=== PATIENT | female | born 1935 | race Caucasian/White ===

== ENCOUNTER 2017-03-24 06:48 | Day surgery (SDC) | payer MEDICARE, OTHER ==
[2017-03-24] MEDS ORDERED: Lactated Ringers 1,000 ML IV SCH (07:30)
[2017-03-24] MEDS ORDERED: fentaNYL 100 MCG/2 ML SDV ONE (08:27)
[2017-03-24] MEDS ORDERED: Propofol 200 MG/20 ML SDV ONE (08:27)
[2017-03-24 10:03] VITALS: BP 120/70
--- NOTE | 2017-03-24 14:56 | OR ---
DATE OF PROCEDURE: 03/24/2017 PREOPERATIVE DIAGNOSIS: Dysphagia. POSTOPERATIVE DIAGNOSIS: Dysphagia, etiology unknown. Unremarkable upper endoscopy. SURGEON: Jair Quinn MD. PROCEDURE: Esophagogastroduodenoscopy. ANESTHESIA: IV anesthesia with monitored anesthesia care. INDICATIONS: This 81-year-old white female is referred for upper endoscopy because of dysphagia. She has a history of gastroesophageal reflux disease, which was treated quite successfully with omeprazole. She says her swallowing problem where food gets stuck is only occasional. I counseled her for upper endoscopy with possible biopsy and/or dilatation including risks and alternatives, and she gave her informed consent to proceed. DESCRIPTION OF PROCEDURE: The patient was placed in the left lateral decubitus position. IV anesthesia was administered by the Anesthesia Service. Time-out was held. The flexible video Olympus upper endoscope was passed through her mouth, down her esophagus, and easily into the stomach. The scope was passed through the pylorus into the duodenal, reaching its third portion. The scope was then slowly withdrawn, examining the mucosa throughout. The duodenal mucosa appeared unremarkable. The scope was brought up through the pylorus into the antrum. This appeared unremarkable. The scope was retroflexed. The proximal stomach appeared unremarkable. The scope was straightened and brought up to the GE junction. The Z-line was straight. There was no evidence of any structural abnormalities that could cause dysphagia. The scope was then brought proximal through the remainder of the esophagus, which throughout its course appeared unremarkable, and it was removed. She tolerated the procedure well. Jair Quinn MD /[id number]
== END 2017-03-24 10:05 | disposition home or self-care (01) ==
LOC: JP.SDS 06:48
PROVIDERS: ATTEND Surgery
DX: R13.10 Dysphagia, unspecified (principal)
CPT/HCPCS: 43235; J2704; J3010; J7120

== ENCOUNTER 2018-12-31 02:47 | Emergency (ER) | payer MEDICARE, OTHER ==
[2018-12-31] MEDS: Sodium Chloride 0.9% 10 ML Syringe FLUSH PRN ×2 (03:27→06:15)
--- NOTE | 2018-12-31 04:04 | EDM.PDOC ---
ED HPI GENERAL MEDICAL PROBLEM - General Chief Complaint: Chest Pain Stated Complaint: CHEST PAIN Time Seen by Provider: 12/31/18 03:17 Source of Information: Reports: Patient History Limitations: Reports: Physical Impairment (This lady has some difficulty speaking so it's difficult to get a history out of her.) - History of Present Illness INITIAL COMMENTS - FREE TEXT/NARRATIVE: She awoke about 1 AM complaining of some chest pain. She pointed to the left pectoral region and the left side of the neck. It radiated down her left arm. The pain was about 8 out of 10 to begin with and is now about 5 out of 10. She noted that she's taking a medication for breast cancer that makes her leg hurt very bad. It's not clear that medication also gives her chest neck and arm pain. She did say she had some kind of screening a while back that showed some coronary artery plaques. Otherwise she denies any heart disease Treatments ORCHARD HAND: Reports: NSAIDS chest pain Pain Score (Numeric/FACES): 8 - Related Data Allergies Allergy/AdvReac Type Severity Reaction Status Date / Time adhesive tape Allergy Cannot Verified 12/31/18 03:03 Remember erythromycin base AdvReac Stomach Verified 12/31/18 03:03 Upset Home Meds: Home Meds Aspirin 325 mg PO DAILY 04/03/13 [History] Levothyroxine Sodium [Synthroid] 75 mcg PO BEDTIME 04/03/13 [History] Lisinopril 20 tab PO DAILY 04/03/13 [History] Metoprolol Succinate [Toprol XL 100mg] 100 mg PO DAILY 04/03/13 [History] hydroCHLOROthiazide [Hydrochlorothiazide] 12.5 mg PO DAILY 04/03/13 [History] Omeprazole 20 mg PO DAILY 03/22/17 [History] Anastrozole [Arimidex] 1 mg PO BEDTIME 12/31/18 [History] Ezetimibe 10 mg PO DAILY 12/31/18 [History] Pravastatin Sodium [Pravastatin (Pravachol)] 40 mg PO BEDTIME 12/31/18 [History] Past Medical History HEENT History: Reports: Hard of Hearing, Impaired Vision Cardiovascular History: Reports: High Cholesterol, Hypertension Gastrointestinal History: Reports: Colon Polyp, GERD 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: Musculoskeletal History: Reports: Osteoporosis Neurological History: Reports: TIA 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 Oncologic (Cancer) History: Reports: Breast, Other (See Below) Other Oncologic History: Lumpectomy of left breast Dermatologic History: Reports: None, Other (See Below) Other Dermatologic History: precancerous skin lesions removed - Infectious Disease History Infectious Disease History: Reports: Chicken Pox, Measles, Mumps - Past Surgical History HEENT Surgical History: Reports: Cataract Surgery Female Surgical History: Reports: Other (See Below) Other Female Surgeries/Procedures: lumpectomy of left breast Neurological Surgical History: Reports: Other (See Below) Other Neurological Surgeries/Procedures: compression fracture 30 years ago Musculoskeletal Surgical History: Reports: Other (See Below) Other Musculoskeletal Surgeries/Procedures:: RFA left leg Social & Family History - Tobacco Use Smoking Status *Q: Never Smoker - Caffeine Use Caffeine Use: Reports: Coffee - Recreational Drug Use Recreational Drug Use: No ED ROS GENERAL - Review of Systems Review Of Systems: See Below Constitutional: Reports: No Symptoms HEENT: Reports: No Symptoms Respiratory: Reports: No Symptoms Cardiovascular: Reports: Chest Pain Endocrine: Reports: No Symptoms GI/Abdominal: Reports: No Symptoms Musculoskeletal: Reports: Neck Pain, Arm Pain, Other Skin: Reports: No Symptoms Neurological: Reports: No Symptoms Psychiatric: Reports: No Symptoms ED EXAM, GENERAL - Physical Exam Exam: See Below Exam Limited By: No Limitations General Appearance: Alert, WD/WN, No Apparent Distress Eye Exam: Bilateral Eye: Normal Inspection Throat/Mouth: Normal Inspection Head: Atraumatic Neck: Supple, Non-Tender Respiratory/Chest: Lungs Clear, Other (A vague substernal and left pectoral area tenderness. Seems pretty mild. It's uncertain if this is the pain she was feeling or not) Cardiovascular: Normal Peripheral Pulses, Regular Rate, Rhythm, No Murmur Peripheral Pulses: 2+: Radial (L), Radial (R), Posterior Tibial (L), Posterior Tibial (R) GI/Abdominal: Normal Bowel Sounds, Soft, Non-Tender Back Exam: Normal Inspection Extremities: Normal Inspection, No Pedal Edema Neurological: Alert, Oriented Psychiatric: Normal Affect Skin Exam: Warm, Dry Course - Vital Signs Last Recorded V/S: Last Vital Signs Temp 36.6 C 12/31/18 06:23 Pulse 62 12/31/18 06:23 Resp 14 12/31/18 06:23 BP 147/68 H 12/31/18 06:23 Pulse Ox 98 12/31/18 06:23 - Orders/Labs/Meds Orders: Active Orders 24 hr Category Date Time Status EKG Documentation Completion [RC] ASDIRECTED Care 12/31/18 03:19 Active Sodium Chloride 0.9% [Saline Flush] Med 12/31/18 03:19 Active 10 ml FLUSH ASDIRECTED PRN Sodium Chloride 0.9% [Saline Flush] Med 12/31/18 04:12 Active 10 ml FLUSH ASDIRECTED PRN Saline Lock Insert [OM.PC] Urgent Oth 12/31/18 03:18 Ordered Saline Lock Insert [OM.PC] Urgent Oth 12/31/18 04:12 Ordered EKG 12 Lead [EK] Urgent Ther 12/31/18 03:18 Ordered Medication Orders Sodium Chloride (Saline Flush) 10 ml FLUSH ASDIRECTED PRN PRN Reason: Keep Vein Open Last Admin: 12/31/18 06:15 Dose: 10 ml Admin: 12/31/18 03:27 Dose: 10 ml Sodium Chloride (Saline Flush) 10 ml FLUSH ASDIRECTED PRN PRN Reason: Keep Vein Open Last Admin: 12/31/18 06:16 Dose: 10 ml Labs: Laboratory Tests 12/31/18 12/31/18 12/31/18 Range/Units 03:36 03:36 03:36 WBC 5.1 (4.5-11.0) K/uL RBC 3.52 (3.30-5.50) M/uL Hgb 11.2 L (12.0-15.0) g/dL Hct 34.4 L (36.0-48.0) % MCV 98 (80-98) fL MCH 32 H (27-31) pg MCHC 33 (32-36) % Plt Count 204 (150-400) K/uL Neut % (Auto) 65 (36-66) % Lymph % (Auto) 12 L (24-44) % Hutchinson % (Auto) 17 H (2-6) % Eos % (Auto) 5 H (2-4) % Baso % (Auto) 1 (0-1) % D-Dimer, Quantitative 460 H (0.0-400.0) ng/mL Sodium 137 L (140-148) mmol/L Potassium 3.7 (3.6-5.2) mmol/L Chloride 102 (100-108) mmol/L Carbon Dioxide 25 (21-32) mmol/L Anion Gap 13.7 (5.0-14.0) mmol/L BUN 21 H (7-18) mg/dL Creatinine 1.1 H (0.6-1.0) mg/dL Est Cr Clr Drug Dosing 35.36 mL/min Estimated GFR (MDRD) 48 L (>60) Glucose 93 (74-106) mg/dL Calcium 8.9 (8.5-10.1) mg/dL Total Bilirubin 0.4 (0.2-1.0) mg/dL AST 30 (15-37) U/L ALT 25 (12-78) U/L Alkaline Phosphatase 80 (46-116) U/L Troponin I < 0.017 (0.000-0.056) ng/mL Total Protein 6.7 (6.4-8.2) g/dL Albumin 3.5 (3.4-5.0) g/dL Globulin 3.2 (2.3-3.5) g/dL Albumin/Globulin Ratio 1.1 L (1.2-2.2) // Range/Units 05:35 WBC (4.5-11.0) K/uL RBC (3.30-5.50) M/uL Hgb (12.0-15.0) g/dL Hct (36.0-48.0) % MCV (80-98) fL MCH (27-31) pg MCHC (32-36) % Plt Count (150-400) K/uL Neut % (Auto) (36-66) % Lymph % (Auto) (24-44) % Hutchinson % (Auto) (2-6) % Eos % (Auto) (2-4) % Baso % (Auto) (0-1) % D-Dimer, Quantitative (0.0-400.0) ng/mL Sodium (140-148) mmol/L Potassium (3.6-5.2) mmol/L Chloride (100-108) mmol/L Carbon Dioxide (21-32) mmol/L Anion Gap (5.0-14.0) mmol/L BUN (7-18) mg/dL Creatinine (0.6-1.0) mg/dL Est Cr Clr Drug Dosing mL/min Estimated GFR (MDRD) (>60) Glucose (74-106) mg/dL Calcium (8.5-10.1) mg/dL Total Bilirubin (0.2-1.0) mg/dL AST (15-37) U/L ALT (12-78) U/L Alkaline Phosphatase (46-116) U/L Troponin I < 0.017 (0.000-0.056) ng/mL Total Protein (6.4-8.2) g/dL Albumin (3.4-5.0) g/dL Globulin (2.3-3.5) g/dL Albumin/Globulin Ratio (1.2-2.2) Meds: Medications Generic Name Dose Route Start Last Admin Trade Name Freq PRN Reason Stop Dose Admin Sodium Chloride 10 ml 12/31/18 03:19 12/31/18 06:15 Saline Flush FLUSH 10 ml ASDIRECTED PRN Administration Keep Vein Open Sodium Chloride 10 ml 12/31/18 04:12 12/31/18 06:16 Saline Flush FLUSH 10 ml ASDIRECTED PRN Administration Keep Vein Open Discontinued Medications Generic Name Dose Route Start Last Admin Trade Name Freq PRN Reason Stop Dose Admin Sodium Chloride 1,000 mls @ 999 mls/hr 12/31/18 04:12 12/31/18 06:15 Normal Saline IV 12/31/18 05:12 999 mls/hr .BOLUS ONE Administration Sodium Chloride 100 mls @ 4 mls/sec 12/31/18 04:32 12/31/18 06:16 Normal Saline IV 12/31/18 04:33 4 mls/sec ASDIRECTED STA Administration Iopamidol 100 ml 12/31/18 04:32 12/31/18 06:16 Isovue-370 (76%) IV 12/31/18 04:33 100 ml . DIRECTED STA Administration - Re-Assessments/Exams Free Text/Narrative Re-Assessment/Exam: 12/31/18 04:30 still a little pressure Free Text/Narrative Re-Assessment/Exam: 12/31/18 06:52 it has been difficult to decide how much pain this woman is having. At time she says it's gone that time she says there is still just a little bit of pressure. We had to call in anesthesia to do vascular access for the CT. CT is negative and repeat troponin is negative. Most likely her pain is just musculoskeletal Departure - Departure Time of Disposition: 06:53 Disposition: Home, Self-Care 01 Condition: Fair Clinical Impression: Non-cardiac chest pain Referrals: Grzegorz Garza MD [Primary Care Provider] - Forms: ED Department Discharge Additional Instructions: There is no evidence of a heart attack or blood clot in your lungs area most likely the pain you felt was musculoskeletal and could be related to the medication you're taking. If you have more pain return to the ER or follow-up with your Dr. graham. - My Orders Last 24 Hours: My Active Orders 12/31/18 03:18 Saline Lock Insert [OM.PC] Urgent EKG 12 Lead [EK] Urgent 12/31/18 03:19 EKG Documentation Completion [RC] ASDIRECTED Sodium Chloride 0.9% [Saline Flush] 10 ml FLUSH ASDIRECTED PRN 12/31/18 04:12 Sodium Chloride 0.9% [Saline Flush] 10 ml FLUSH ASDIRECTED PRN Saline Lock Insert [OM.PC] Urgent - Assessment/Plan Last 24 Hours: My Active Orders 12/31/18 03:18 Saline Lock Insert [OM.PC] Urgent EKG 12 Lead [EK] Urgent 12/31/18 03:19 EKG Documentation Completion [RC] ASDIRECTED Sodium Chloride 0.9% [Saline Flush] 10 ml FLUSH ASDIRECTED PRN 12/31/18 04:12 Sodium Chloride 0.9% [Saline Flush] 10 ml FLUSH ASDIRECTED PRN Saline Lock Insert [OM.PC] Urgent
[2018-12-31] MEDS ORDERED: Sodium Chloride 0.9% 1,000 ML IV ONE (04:12)
[2018-12-31] MEDS ORDERED: Sodium Chloride 0.9% 10 ML Syringe FLUSH PRN (04:12)
--- NOTE | 2018-12-31 04:26 | CRLCR ---
Indication: Chest pain Technique: Chest 1 view Comparison: None Findings/Impression: Cardiovascular and mediastinum: Mild cardiomegaly, partially related to the portable technique. An unfolded aorta. Lungs and pleural space: An elevated right hemidiaphragm. Mild right hilar prominence could be related to central vasculature. Recommend followup. A small left suprahilar nodule could represent a granuloma or a vessel. No consolidation or pleural effusions. No pneumothorax seen. Bones and soft tissues: No significant findings. Dictated by Noel Torres MD @ 12/31/2018 4:24:44 AM Dictated by: Noel Torres MD @ 12/31/2018 04:24:49 (Electronically Signed)
[2018-12-31] MEDS ORDERED: Iopamidol 755 Mg/ML 100 ML Bottle IV STA (04:32)
[2018-12-31] MEDS ORDERED: Sodium Chloride 0.9% 100 ML IV STA (04:32)
[2018-12-31 06:24] VITALS: BP 147/68
--- NOTE | 2018-12-31 06:46 | CRLCT ---
INDICATION: Chest pain and elevated D-dimer. History of breast cancer. TECHNIQUE: CT chest PE was acquired with 100 cc Isovue 370 IV contrast. COMPARISON: None. FINDINGS: Heart and vasculature: Contrast opacification of the pulmonary arterial tree is adequate. No sign of pulmonary embolism. Heart size is normal. Thoracic aorta and pulmonary artery are normal in caliber. Lungs and pleural: No suspicious nodules or infiltrates. There are patchy areas of mosaic attenuation. No pleural effusions, pleural thickening, or pneumothorax. Lymph nodes/mediastinum: No mediastinal, hilar, or axillary adenopathy. Thyroid gland is normal. Chest wall: No masses. Upper abdomen: Normal. Bones: Unremarkable for age. IMPRESSION: No pulmonary embolism. Scattered areas of mosaic attenuation in the lungs suggest air trapping versus small vessel or small airway disease. No other acute or specific finding to explain chest pain. Dictated by Clay Alvarenga MD @ 12/31/2018 6:45:16 AM Please note that all CT scans at this facility use dose modulation, iterative reconstruction, and/or weight-based dosing when appropriate to reduce radiation dose to as low as reasonably achievable. Dictated by: Clay Alvarenga MD @ 12/31/2018 06:45:22 (Electronically Signed)
== END 2018-12-31 07:22 | disposition home or self-care (01) ==
LOC: JP.ED 02:47
DX: R07.89 Other chest pain (principal); E78.00 Pure hypercholesterolemia, unspecified; I10 Essential (primary) hypertension; Z88.1 Allergy status to other antibiotic agents; Z79.82 Long term (current) use of aspirin; Z79.899 Other long term (current) drug therapy
CPT/HCPCS: 36415; 71045; 71275; 80053; 84484; 85025; 85379; 93005; 96360; 99285; J7030; Q9967

== ENCOUNTER 2022-12-19 04:15 | Emergency (ER) | payer MEDICARE, OTHER ==
[2022-12-19 04:30] VITALS: BP 157/82; PULSE 70
[2022-12-19] MEDS ORDERED: Aluminum Hydroxide/Magnesium Hydroxide/Simethicone Susp 30 ML Cup PO ONE (04:54)
[2022-12-19 05:04] LABS: BASOPHILS PERCENT AUTO 1.7 % (0.1-1.3); EOSINOPHILS ABSOLUTE AUTO 0.19 K/uL (0.00-0.40); EOSINOPHILS PERCENT AUTO 3.2 % (0.0-5.4); HEMATOCRIT 36.1 % (34.3-46.0); IMMATURE GRAN ABSOLUTE AUTO 0.04 K/uL (0.00-0.23); IMMATURE GRAN PERCENT AUTO 0.7 % (0.0-0.7); LYMPHOCYTES PERCENT AUTO 11.8 % (11.4-47.7); MEAN CORPUSCULAR HEMOGLOBIN 31.9 pg (31.6-35.5); MEAN CORPUSCULAR HGB CONC 33.2 g/dL (31.6-35.5); MONOCYTES ABSOLUTE AUTO 0.54 K/uL (0.20-0.90); MONOCYTES PERCENT AUTO 9.1 % (3.3-12.6); NEUTROPHILS ABSOLUTE AUTO 4.36 K/uL (1.0-7.6); NEUTROPHILS PERCENT AUTO 73.5 % (40.0-78.1); PLATELET COUNT,PLT 243 K/uL (130-375); RED BLOOD CELL COUNT 3.76 M/uL (3.77-5.24); WHITE BLOOD CELL COUNT,WBC 5.9 K/uL (3.2-11.0)
[2022-12-19 05:27] LABS: ALANINE AMINOTRANSFERASE,ALT 27 U/L (12-78); ALBUMIN 3.4 g/dL (3.4-5.0); ALKALINE PHOSPHATASE 93 U/L (46-116); ASPARTATE AMNIOTRANSFERASE,AST 27 U/L (15-37); BILIRUBIN TOTAL 0.4 mg/dL (0.2-1.0); BLOOD UREA NITROGEN,BUN 23 mg/dL (7-18); CALCIUM 8.9 mg/dL (8.5-10.1); CARBON DIOXIDE,CO2 29 mmol/L (21-32); CHLORIDE,CL 99 mmol/L (100-108); CREATININE 0.9 mg/dL (0.6-1.0); EST CRCL DRUG DOSING (CG) 38.63 mL/min; ESTIMATED GFR 63 mL/min (>60); GLUCOSE RANDOM 97 mg/dL (74-106); LIPASE 86 U/L (73-393); POTASSIUM,K 3.3 mmol/L (3.6-5.2); PROTEIN TOTAL,TP 6.7 g/dL (6.4-8.2); SODIUM,NA 136 mmol/L (140-148); TROPONIN I HIGH SENSITIVITY 7.6 pg/mL (<=60.3)
[2022-12-19 05:34] LABS: ANION GAP 11.3 mmol/L (5.0-14.0)
== END 2022-12-19 05:55 | disposition home or self-care (01) ==
LOC: JP.ED 04:15
DX: K21.00 Gastro-esophageal reflux disease with esophagitis, without bleeding (principal); E78.00 Pure hypercholesterolemia, unspecified; I10 Essential (primary) hypertension; E20.9 Hypoparathyroidism, unspecified; Z79.82 Long term (current) use of aspirin; Z79.899 Other long term (current) drug therapy; Z91.048 Other nonmedicinal substance allergy status; Z88.1 Allergy status to other antibiotic agents
CPT/HCPCS: 36415; 80053; 83690; 84484; 85025; 99284; A9270

== ENCOUNTER 2024-01-14 15:49 | Inpatient (IN) | payer MEDICARE, OTHER ==
[2024-01-14 16:59] LABS: BASOPHILS ABSOLUTE AUTO 0.07 K/uL (0.00-0.10); BASOPHILS PERCENT AUTO 0.7 % (0.1-1.3); EOSINOPHILS ABSOLUTE AUTO 0.11 K/uL (0.00-0.40); EOSINOPHILS PERCENT AUTO 1.1 % (0.0-5.4); HEMATOCRIT 34.1 % (34.3-46.0); HEMOGLOBIN 12.2 g/dL (11.2-15.5); IMMATURE GRAN ABSOLUTE AUTO 0.09 K/uL (0.00-0.23); IMMATURE GRAN PERCENT AUTO 0.9 % (0.0-0.7); LYMPHOCYTES ABSOLUTE AUTO 0.55 K/uL (0.8-3.3); LYMPHOCYTES PERCENT AUTO 5.7 % (11.4-47.7); MEAN CORPUSCULAR HGB CONC 35.8 g/dL (31.6-35.5); MEAN CORPUSCULAR VOLUME 89.5 fL (81.4-99.0); MONOCYTES ABSOLUTE AUTO 0.73 K/uL (0.20-0.90); MONOCYTES PERCENT AUTO 7.6 % (3.3-12.6); NEUTROPHILS ABSOLUTE AUTO 8.04 K/uL (1.0-7.6); PLATELET COUNT,PLT 266 K/uL (130-375); RED BLOOD CELL COUNT 3.81 M/uL (3.77-5.24); WHITE BLOOD CELL COUNT,WBC 9.6 K/uL (3.2-11.0)
[2024-01-14 17:22] LABS: ALANINE AMINOTRANSFERASE,ALT 24 U/L (12-78); ALBUMIN 3.6 g/dL (3.4-5.0); ALKALINE PHOSPHATASE 107 U/L (46-116); ANION GAP 10.7 mmol/L (5.0-14.0); ASPARTATE AMNIOTRANSFERASE,AST 21 U/L (15-37); BILIRUBIN TOTAL 0.4 mg/dL (0.2-1.0); BLOOD UREA NITROGEN,BUN 29 mg/dL (7-18); CALCIUM 9.2 mg/dL (8.5-10.1); CARBON DIOXIDE,CO2 29 mmol/L (21-32); CHLORIDE,CL 89 mmol/L (100-108); EST CRCL DRUG DOSING (CG) 33.41 mL/min; ESTIMATED GFR 55 mL/min (>60); GLUCOSE RANDOM 134 mg/dL (74-106); POTASSIUM,K 4.7 mmol/L (3.6-5.2); PROTEIN TOTAL,TP 7.1 g/dL (6.4-8.2); SODIUM,NA 124 mmol/L (140-148)
[2024-01-14 17:29] LABS: TSH ULTRASENSITIVE 2.506 uIU/mL (0.358-3.740)
[2024-01-14 17:50] LABS: APPEARANCE,URINE CLEAR (CLEAR); BILIRUBIN,URINE NEGATIVE (NEGATIVE); COLOR,URINE YELLOW (YELLOW); GLUCOSE,URINE NEGATIVE (NEGATIVE); KETONES,URINE NEGATIVE (NEGATIVE); LEUKOCYTE ESTERASE,URINE TRACE (NEGATIVE); NITRITE,URINE NEGATIVE (NEGATIVE); OCCULT BLOOD,URINE NEGATIVE (NEGATIVE); PROTEIN,URINE NEGATIVE (NEGATIVE); UROBILINOGEN,URINE 0.2 EU/dL (0.2-1.0)
[2024-01-14 17:58] LABS: AMORPHOUS SEDIMENT,URINE NOT SEEN; BACTERIA,URINE FEW; EPITHELIAL CELLS,URINE FEW; MUCUS,URINE RARE; RBC,URINE NOT SEEN (0-5); WBC,URINE 0-5 (0-5)
[2024-01-14] MEDS: Sucralfate 1 GM Tab PO ONE (18:15)
[2024-01-14] MEDS: Pantoprazole 40 MG Tab.CR PO ONE (18:15)
[2024-01-14] MEDS: Acetaminophen 325 MG Tab PO ONE (20:18)
[2024-01-14] MEDS: Sodium Chloride 0.9% 10 ML Syringe FLUSH PRN (20:35)
[2024-01-14] MEDS: Sodium Chloride 0.9% 1,000 ML IV SCH (20:35)
[2024-01-14] MEDS ORDERED: Ondansetron 4 MG/2 ML SDV IV PRN (20:57)
[2024-01-14] MEDS: Enoxaparin 40 MG/0.4 ML Syringe SUBCUT SCH (21:56)
[2024-01-15] MEDS: traMADol 50 MG Tab PO ONE (00:05)
[2024-01-15] MEDS: Melatonin 3 MG Tab PO PRN (00:08)
[2024-01-15 02:46] LABS: HEMATOCRIT 30.5 % (34.3-46.0); HEMOGLOBIN 11.1 g/dL (11.2-15.5); MEAN CORPUSCULAR HEMOGLOBIN 32.7 pg (31.6-35.5); MEAN CORPUSCULAR HGB CONC 36.4 g/dL (31.6-35.5); RED BLOOD CELL COUNT 3.39 M/uL (3.77-5.24); WHITE BLOOD CELL COUNT,WBC 6.9 K/uL (3.2-11.0)
[2024-01-15 03:00] LABS: ANION GAP 8.8 mmol/L (5.0-14.0); CALCIUM 8.4 mg/dL (8.5-10.1); CREATININE 0.8 mg/dL (0.6-1.0); EST CRCL DRUG DOSING (CG) 41.76 mL/min; POTASSIUM,K 3.8 mmol/L (3.6-5.2)
[2024-01-15] MEDS: Acetaminophen 325 MG Tab PO PRN (05:37)
[2024-01-15] MEDS: Pantoprazole 40 MG Tab.CR PO SCH (08:13)
[2024-01-15] MEDS: Sodium Chloride 0.9% 10 ML Syringe FLUSH PRN (11:24)
[2024-01-15] MEDS: Iopamidol 612 MG/ML 100 ML Bottle IV PRN (11:24)
[2024-01-15] MEDS: Sodium Chloride 0.9% 80 ML IV ONE (11:25)
[2024-01-15] MEDS: Rosuvastatin 10 MG Tab PO SCH (14:50)
[2024-01-15] MEDS: Aspirin 81 MG Tab.EC PO SCH (14:51)
[2024-01-15] MEDS: Levothyroxine 25 MCG Tab PO SCH (14:51)
[2024-01-15] MEDS: Sennosides/Docusate Sodium 50-8.6 MG Tab PO PRN (16:05)
[2024-01-15] MEDS: oxyCODONE 5 MG Tab PO PRN (16:09)
[2024-01-15] MEDS: Diclofenac Sodium 1% Gel 100 GM Tube TOP PRN (17:42)
[2024-01-15] MEDS: traMADol 50 MG Tab PO PRN (19:22)
[2024-01-15] MEDS: Pantoprazole 40 MG Vial IVPUSH SCH (20:45)
[2024-01-15] MEDS: Enoxaparin 40 MG/0.4 ML Syringe SUBCUT SCH (20:45)
[2024-01-16] MEDS: Ondansetron 4 MG Tab.DIS PO PRN (04:57)
[2024-01-16 05:17] LABS: CALCIUM 9.1 mg/dL (8.5-10.1); CREATININE 0.8 mg/dL (0.6-1.0); EST CRCL DRUG DOSING (CG) 41.76 mL/min; POTASSIUM,K 4.1 mmol/L (3.6-5.2)
[2024-01-16 05:19] LABS: ANION GAP 13.1 mmol/L (5.0-14.0)
[2024-01-16] MEDS: Lisinopril 20 MG Tab PO SCH (08:08)
[2024-01-16] MEDS: Pantoprazole 40 MG Tab.CR PO SCH (15:58)
[2024-01-16] MEDS: LORazepam 0.5 MG Tab PO PRN (20:15)
[2024-01-16] MEDS: Calcium Carbonate 500 MG Tab.Chew PO PRN (20:16)
[2024-01-17] MEDS: Sodium Chloride 0.9% 1,000 ML IV SCH (00:10)
[2024-01-17 05:16] LABS: CALCIUM 8.9 mg/dL (8.5-10.1); CREATININE 0.7 mg/dL (0.6-1.0); EST CRCL DRUG DOSING (CG) 47.72 mL/min; POTASSIUM,K 4.3 mmol/L (3.6-5.2)
[2024-01-17 05:21] LABS: ANION GAP 11.3 mmol/L (5.0-14.0)
[2024-01-17] MEDS ORDERED: Propofol 200 MG/20 ML SDV ONE (09:18)
[2024-01-17] MEDS ORDERED: fentaNYL 50 MCG/ML SDV ONE (09:18)
[2024-01-17] MEDS ORDERED: Sodium Chloride 0.9% 10 ML ONE (11:44)
[2024-01-17 12:38] VITALS: BP 153/76; PULSE 76
== END 2024-01-17 15:09 | disposition home or self-care (01) | DRG 392 ==
LOC: JP.ED 15:49 → JP.MS 20:09 → OBSVTOIN 01-15 13:46
PROVIDERS: ADMIT Registered Nurse; ATTEND Hospitalist
PROC: 0DB48ZX Excision of Esophagogastric Junction, Via Natural or Artificial Opening Endoscopic, Diagnostic (ICD-10-PCS; 2024-01-17)
PROC: 0D748ZZ Dilation of Esophagogastric Junction, Via Natural or Artificial Opening Endoscopic (ICD-10-PCS; principal; 2024-01-17 12:00)
DX: K22.2 Esophageal obstruction (principal); E87.1 Hypo-osmolality and hyponatremia; K21.00 Gastro-esophageal reflux disease with esophagitis, without bleeding; K21.9 Gastro-esophageal reflux disease without esophagitis; I10 Essential (primary) hypertension; H91.90 Unspecified hearing loss, unspecified ear; H54.7 Unspecified visual loss; E78.00 Pure hypercholesterolemia, unspecified; M81.0 Age-related osteoporosis without current pathological fracture; E03.9 Hypothyroidism, unspecified; Z86.73 Personal history of transient ischemic attack (TIA), and cerebral infarction without residual deficits; Z91.048 Other nonmedicinal substance allergy status; Z88.1 Allergy status to other antibiotic agents; Z79.82 Long term (current) use of aspirin; Z79.899 Other long term (current) drug therapy; Z86.010 Personal history of colon polyps; Z87.81 Personal history of (healed) traumatic fracture; Z85.3 Personal history of malignant neoplasm of breast; Z98.49 Cataract extraction status, unspecified eye; Z90.10 Acquired absence of unspecified breast and nipple
CPT/HCPCS: 36415 ×2; 74177 ×2; 80048; 80053; 81001; 83690; 83880; 84295; 84443; 84484; 85025; 85027; 93005 ×2; 93010 ×2; 99285 ×2; A9270 ×8; J1650; J3490 ×3; J7030 ×2; Q9967; 96125-GO; 97161-GP; 97165-GO; C1726; C9113; J2704; J3010; Q0162

== ENCOUNTER 2024-02-09 04:55 | Emergency (ER) | payer MEDICARE, OTHER ==
[2024-02-09 06:31] LABS: BASOPHILS ABSOLUTE AUTO 0.04 K/uL (0.00-0.10); BASOPHILS PERCENT AUTO 0.8 % (0.1-1.3); EOSINOPHILS ABSOLUTE AUTO 0.14 K/uL (0.00-0.40); EOSINOPHILS PERCENT AUTO 2.9 % (0.0-5.4); HEMATOCRIT 40.5 % (34.3-46.0); HEMOGLOBIN 14.2 g/dL (11.2-15.5); IMMATURE GRAN PERCENT AUTO 0.4 % (0.0-0.7); LYMPHOCYTES ABSOLUTE AUTO 0.44 K/uL (0.8-3.3); MEAN CORPUSCULAR HEMOGLOBIN 32.3 pg (31.6-35.5); MEAN CORPUSCULAR HGB CONC 35.1 g/dL (31.6-35.5); MEAN CORPUSCULAR VOLUME 92.3 fL (81.4-99.0); MONOCYTES ABSOLUTE AUTO 0.46 K/uL (0.20-0.90); MONOCYTES PERCENT AUTO 9.4 % (3.3-12.6); NEUTROPHILS ABSOLUTE AUTO 3.79 K/uL (1.0-7.6); NEUTROPHILS PERCENT AUTO 77.5 % (40.0-78.1); PLATELET COUNT,PLT 257 K/uL (130-375); RED BLOOD CELL COUNT 4.39 M/uL (3.77-5.24); WHITE BLOOD CELL COUNT,WBC 4.9 K/uL (3.2-11.0)
[2024-02-09 06:34] LABS: IMMATURE GRAN ABSOLUTE AUTO 0.02 K/uL (0.00-0.23)
[2024-02-09] MEDS: Pantoprazole 40 MG Vial IVPUSH ONE (07:13)
[2024-02-09 07:15] LABS: A/G RATIO 1.2 (1.2-2.2); ALANINE AMINOTRANSFERASE,ALT 23 U/L (12-78); ALBUMIN 3.8 g/dL (3.4-5.0); ALKALINE PHOSPHATASE 95 U/L (46-116); ASPARTATE AMNIOTRANSFERASE,AST 20 U/L (15-37); BILIRUBIN TOTAL 0.8 mg/dL (0.2-1.0); BLOOD UREA NITROGEN,BUN 14 mg/dL (7-18); CARBON DIOXIDE,CO2 29 mmol/L (21-32); CHLORIDE,CL 97 mmol/L (100-108); CREATININE 0.9 mg/dL (0.6-1.0); EST CRCL DRUG DOSING (CG) 37.93 mL/min; ESTIMATED GFR 62 mL/min (>60); GLUCOSE RANDOM 114 mg/dL (74-106); SODIUM,NA 136 mmol/L (140-148); TROPONIN I HIGH SENSITIVITY 10.7 pg/mL (<=60.3)
[2024-02-09] MEDS: Sodium Chloride 0.9% 10 ML Syringe FLUSH PRN (07:16)
[2024-02-09] MEDS: Sodium Chloride 0.9% 80 ML IV STA (07:16)
[2024-02-09] MEDS: Iopamidol 612 MG/ML 100 ML Bottle IV STA (07:16)
[2024-02-09 07:21] LABS: ANION GAP 12.9 mmol/L (5.0-14.0); POTASSIUM,K 2.9 mmol/L (3.6-5.2)
[2024-02-09] MEDS: NS + KCl 20mEq/L 1,000 ML IV SCH (07:41)
[2024-02-09] MEDS: Ondansetron 4 MG/2 ML SDV IVPUSH ONE (07:41)
[2024-02-09] MEDS: Potassium Chloride 10 MEQ Cap.ER PO ONE (07:41)
[2024-02-09 09:47] VITALS: BP 143/76; PULSE 80
[2024-02-09] MEDS: traMADol 50 MG Tab PO ONE (09:48)
[2024-02-09 10:16] LABS: CALCIUM 8.7 mg/dL (8.5-10.1); CREATININE 0.8 mg/dL (0.6-1.0); EST CRCL DRUG DOSING (CG) 42.67 mL/min; POTASSIUM,K 3.2 mmol/L (3.6-5.2)
[2024-02-09 10:17] LABS: ANION GAP 13.2 mmol/L (5.0-14.0)
== END 2024-02-09 11:40 | disposition home or self-care (01) ==
LOC: JP.ED 04:55
DX: R10.13 Epigastric pain (principal); R19.7 Diarrhea, unspecified; I10 Essential (primary) hypertension; E87.6 Hypokalemia; E78.00 Pure hypercholesterolemia, unspecified; K21.9 Gastro-esophageal reflux disease without esophagitis; E03.9 Hypothyroidism, unspecified; Z79.82 Long term (current) use of aspirin; Z79.899 Other long term (current) drug therapy; Z79.890 Hormone replacement therapy; Z88.1 Allergy status to other antibiotic agents; Z88.4 Allergy status to anesthetic agent; Z91.048 Other nonmedicinal substance allergy status
CPT/HCPCS: 36415; 74177; 76705; 80048; 80053; 83605; 83690; 84443; 84484; 85025; 93005; 93010; 96365; 96366; 96375; 99284; 99285; A9270; J2405; J2470; J3480; J3490; Q9967

== ENCOUNTER 2024-03-05 05:57 | Day surgery (SDC) | payer MEDICARE, OTHER ==
[2024-03-05] MEDS ORDERED: Bupivacaine 0.5%/EPINEPHrine 1:200,000 50 ML MDV ONE (06:52)
[2024-03-05] MEDS: Indocyanine Green 25 MG SDV IV ONE (06:52)
[2024-03-05] MEDS ORDERED: Bupivacaine 0.5% 30 ML SDV ONE (06:52)
[2024-03-05] MEDS ORDERED: fentaNYL 250 MCG/5 ML SDV ONE (07:16)
[2024-03-05] MEDS ORDERED: Dexamethasone 4 MG/ML SDV ONE (07:17)
[2024-03-05] MEDS ORDERED: Rocuronium 50 MG/5 ML Vial ONE (07:17)
[2024-03-05] MEDS ORDERED: Glycopyrrolate 0.2 MG/ML 5 ML MDV ONE (07:17)
[2024-03-05] MEDS ORDERED: Ondansetron 4 MG/2 ML SDV ONE (07:17)
[2024-03-05] MEDS ORDERED: Neostigmine Methylsulfate 10 MG/10 ML MDV ONE (07:17)
[2024-03-05] MEDS ORDERED: Propofol 200 MG/20 ML SDV ONE (07:17)
[2024-03-05] MEDS ORDERED: Succinylcholine 200 MG/10 ML MDV ONE (07:17)
[2024-03-05] MEDS: metroNIDAZOLE/Normal Saline 500 MG in Premix Bag 1 BAG IV ONE (07:30)
[2024-03-05] MEDS: Sodium Chloride 0.9% 1,000 ML IV SCH (07:39)
[2024-03-05] MEDS ORDERED: Sugammadex Sodium 200 MG/2 ML VIAL IV ONE (08:21)
[2024-03-05] MEDS: Ropivacaine 32 ML, dexAMETHasone 8 MG, EPINEPHrine 0.4 MG, Sodium Chloride 0.9% 45.6 ML NERVRT SCH (08:30)
[2024-03-05] MEDS: ceFAZolin 2 GM in Premix Bag 1 BAG IV ONE (08:30)
[2024-03-05] MEDS: Bupivacaine 0.5% 50 ML MDV ONE (08:40)
[2024-03-05] MEDS: Lidocaine 1% with EPINEPHrine 1:100,000 50 ML MDV ONE (08:40)
[2024-03-05] MEDS: Acetaminophen/HYDROcodone 325-5 MG Tab PO PRN (13:04)
[2024-03-05 14:25] VITALS: BP 113/65; PULSE 81
== END 2024-03-05 14:38 | disposition home or self-care (01) ==
LOC: JP.SDS 05:57
PROVIDERS: ATTEND Surgery
DX: K81.1 Chronic cholecystitis (principal); E03.9 Hypothyroidism, unspecified; E78.5 Hyperlipidemia, unspecified; I10 Essential (primary) hypertension; Z79.890 Hormone replacement therapy; Z79.899 Other long term (current) drug therapy
CPT/HCPCS: 00790; 47563; 88304; A9270; J0171; J0330; J0665; J0690; J1100; J1836; J2405; J2704; J2795; J3010; J3490; J7030; J1596; J2710